=== PATIENT | female | born 1950 | race Caucasian/White ===

== ENCOUNTER 2017-03-19 15:15 | Outpatient (RCR) | payer OTHER | END 2017-03-22 | disposition home or self-care (01) | LOC: PTY 15:15 | DX: M00.9 Pyogenic arthritis, unspecified (principal) ==

== ENCOUNTER 2017-04-19 15:15 | Outpatient (RCR) | payer OTHER | END 2017-04-22 | disposition home or self-care (01) | LOC: PTY 15:15 | DX: M00.9 Pyogenic arthritis, unspecified (principal) | CPT/HCPCS: 97110; G0283 ==

== ENCOUNTER 2017-05-17 16:15 | Outpatient (RCR) | payer OTHER | END 2017-05-22 | disposition home or self-care (01) | LOC: PTY 16:15 | DX: M18.12 Unilateral primary osteoarthritis of first carpometacarpal joint, left hand (principal); M00.9 Pyogenic arthritis, unspecified; Z96.651 Presence of right artificial knee joint ==

== ENCOUNTER 2017-06-16 07:57 | Outpatient (RCR) | payer OTHER | END 2017-06-22 | disposition home or self-care (01) | LOC: PTY 07:57 | DX: M18.12 Unilateral primary osteoarthritis of first carpometacarpal joint, left hand (principal); M00.9 Pyogenic arthritis, unspecified ==

== ENCOUNTER → 2017-07-22 | Outpatient (RCR) | payer OTHER | END | disposition home or self-care (01) | LOC: PTY 06-23 14:05 | DX: M18.12 Unilateral primary osteoarthritis of first carpometacarpal joint, left hand (principal); M00.9 Pyogenic arthritis, unspecified; Z96.651 Presence of right artificial knee joint ==

== ENCOUNTER 2017-08-18 09:30 | Outpatient (RCR) | payer OTHER | END 2017-08-22 | disposition home or self-care (01) | LOC: PTY 09:30 | DX: M54.5 Low back pain (principal); M79.7 Fibromyalgia; M18.12 Unilateral primary osteoarthritis of first carpometacarpal joint, left hand; M00.9 Pyogenic arthritis, unspecified; Z96.651 Presence of right artificial knee joint ==

== ENCOUNTER 2017-08-24 09:45 | Outpatient (RCR) | payer OTHER | END 2017-09-22 | disposition home or self-care (01) | LOC: PTY 09:45 | DX: M54.5 Low back pain (principal); M79.7 Fibromyalgia; M54.30 Sciatica, unspecified side ==

== ENCOUNTER 2017-09-17 10:00 | Outpatient (RCR) | payer OTHER | END 2017-09-22 | disposition home or self-care (01) | LOC: PTY 10:00 | DX: M18.12 Unilateral primary osteoarthritis of first carpometacarpal joint, left hand (principal) ==

== ENCOUNTER 2017-10-01 13:10 | Outpatient (RCR) | payer OTHER | END 2017-10-20 | disposition home or self-care (01) | LOC: PTY 13:10 | DX: M54.5 Low back pain (principal); M79.7 Fibromyalgia; M18.12 Unilateral primary osteoarthritis of first carpometacarpal joint, left hand ==